=== PATIENT | male | born 2000 | race Caucasian/White ===

== ENCOUNTER → 2020-06-08 09:04 | Outpatient (CLI) | payer MEDICAID | END | disposition home or self-care (01) | LOC: D.RT 08:00 → D.LAB 06-16 13:00 → D.RAD 06-16 13:30 → D.RT 06-16 13:45 | PROVIDERS: ATTEND Internal Medicine Pulmonary Disease | DX: R06.00 Dyspnea, unspecified (principal); Z11.52 Encounter for screening for COVID-19 ==